=== PATIENT | male | born 1980 | race Caucasian/White ===

== ENCOUNTER 2020-09-10 17:42 | Emergency (ER) | payer BC ==
[~2020-09-10] VITALS: Ht 167.6 cm; Wt 87.5 kg
[2020-09-10] MEDS ORDERED: SERT50TA PO (17:50)
--- NOTE | 2020-09-10 18:30 | NUR ---
PT IS IN ROOM #2B. NATNAAEL GOLDEN EVALUATED THE PT.
[2020-09-10] MEDS ORDERED: DICYCLOMINE HCL 20 MG/2 ML AMPUL IM STA (18:52)
[2020-09-10] MEDS ORDERED: IV NORMAL SALINE 1000 ML BAG IV ONE (19:00)
[2020-09-10] MEDS ORDERED: FAMOTIDINE. 20 MG/2 ML VIAL IV ONE ×2 (19:00→19:05)
[2020-09-10] MEDS ORDERED: ONDANSETRON 4 MG/2 ML VIAL IV ONE (19:00)
[2020-09-10] MEDS ORDERED: ONDANSETRON 4 MG/2 ML VIAL ONE (19:04)
[2020-09-10 19:37] LABS: BASOPHILS % (AUTO) 0.3 % (0.0-2.0); HEMATOCRIT 42.7 % (36.7-47.1); HEMOGLOBIN 14.6 g/dL (12.5-16.3); LYMPHOCYTES % (AUTO) 8.9 % (20.5-51.5); MEAN CORPUSCULAR HEMOGLOBIN 31.1 uug (23.8-33.4); MEAN CORPUSCULAR HGB CONC 34 g/dL (32.5-36.3); MEAN CORPUSCULAR VOLUME 90.8 fL (73.0-96.2); MONOCYTES # (AUTO) 0.2 K/uL (2.0-10.0); NEUTROPHILS # (AUTO) 10.3 K/uL (1.8-8.9); NEUTROPHILS % (AUTO) 88.8 % (38.5-71.5); PLATELET COUNT (AUTO) 280 K/uL (152-348); RED BLOOD CELL COUNT(AUTO) 4.71 MIL/uL (4.06-5.63); WHITE BLOOD COUNT (AUTO) 11.6 K/uL (3.6-10.2)
[2020-09-10 19:50] LABS: BILIRUBIN,DIRECT 0.2 mg/dL (0.0-0.2); BILIRUBIN,TOTAL 0.6 mg/dL (0.2-1.0); POTASSIUM 3.8 mmol/L (3.5-5.1); TOTAL PROTEIN, SERUM 7.9 g/dL (6.4-8.2)
[2020-09-10] MEDS ORDERED: ACETAMINOPHEN ES 500 MG TABLET ONE (20:11)
--- NOTE | 2020-09-10 20:11 | NUR ---
patient given tylenol 1,000mg for temperature of 101.2
[2020-09-10] MEDS ORDERED: METOCLOPRAMIDE HCL 10 MG/2 ML VIAL IV ONE (20:15)
[2020-09-10] MEDS ORDERED: diphenhydrAMINE 50 MG/1 ML VIAL IV ONE (20:15)
[2020-09-10] MEDS ORDERED: ACETAMINOPHEN 325 MG TABLET PO ONE (20:15)
[2020-09-10] MEDS ORDERED: diphenhydrAMINE 50 MG/1 ML VIAL ONE (20:40)
[2020-09-10] MEDS ORDERED: METOCLOPRAMIDE HCL 10 MG/2 ML VIAL ONE (20:40)
--- NOTE | 2020-09-10 20:59 | NUR ---
Patient swabbed for Covid at this time
[2020-09-10] MEDS ORDERED: DICYCLOMINE HCL LIQ 10 MG/5 ML UDC ONE (22:01)
--- NOTE | 2020-09-10 22:17 | NUR ---
IV discontinued at this time
[2020-09-10 22:18] VITALS: BP 127/70
--- NOTE | 2020-09-10 22:30 | NUR ---
Patient discharged to home in stable condition. Able to ambulate with steady gait. Written and verbal after care instructions given. Took all belongings. Patient verbalizes understanding of instructions. Stressed follow up or return to ER for worsening s/s.
== END 2020-09-10 22:30 | disposition home or self-care (01) ==
LOC: ER 17:47
DX: R10.9 Unspecified abdominal pain (principal); R11.2 Nausea with vomiting, unspecified; D72.829 Elevated white blood cell count, unspecified; Z85.47 Personal history of malignant neoplasm of testis; F32.9 Major depressive disorder, single episode, unspecified; Z79.899 Other long term (current) drug therapy; Z20.828 Contact with and (suspected) exposure to other viral communicable diseases
CPT/HCPCS: 36415; 80048; 80076; 83690; 85025; 96361; 96374; 96375; 99284; J0500; J1200; J2405; J2765; J3490; U0003; A4663; A9150; J7030

== ENCOUNTER 2020-09-13 12:33 | Emergency (ER) | payer BC ==
[~2020-09-13] VITALS: Ht 167.6 cm; Wt 86.2 kg
[~2020-09-13 12:33] MED LIST: SERT50TA PO
[2020-09-13] MEDS ORDERED: PANTOPRAZOLE SODIUM 40 MG VIAL IV ONE (14:00)
[2020-09-13] MEDS ORDERED: HYDROMORPHONE 1 MG/1 ML DISP.SYRIN IV ONE (14:00)
[2020-09-13] MEDS ORDERED: IV NORMAL SALINE 1000 ML BAG IV ONE (14:00)
[2020-09-13] MEDS ORDERED: ONDANSETRON 4 MG/2 ML VIAL IV ONE ×2 (14:00→14:45)
[2020-09-13] MEDS ORDERED: HYDROMORPHONE 1 MG/1 ML DISP.SYRIN ONE (14:08)
[2020-09-13] MEDS ORDERED: PANTOPRAZOLE SODIUM 40 MG VIAL ONE (14:08)
[2020-09-13] MEDS ORDERED: ONDANSETRON 4 MG/2 ML VIAL ONE ×2 (14:08→14:51)
[2020-09-13 14:31] LABS: BASOPHILS % (AUTO) 0.5 % (0.0-2.0); HEMOGLOBIN 14.3 g/dL (12.5-16.3); LYMPHOCYTES % (AUTO) 9.9 % (20.5-51.5); MEAN CORPUSCULAR HEMOGLOBIN 31.7 uug (23.8-33.4); MEAN CORPUSCULAR HGB CONC 35 g/dL (32.5-36.3); MONOCYTES # (AUTO) 0.3 K/uL (2.0-10.0); MONOCYTES % (AUTO) 2.7 % (0.0-11.0); NEUTROPHILS % (AUTO) 86.9 % (38.5-71.5); PLATELET COUNT (AUTO) 283 K/uL (152-348); WHITE BLOOD COUNT (AUTO) 10.3 K/uL (3.6-10.2)
[2020-09-13 14:36] LABS: CREATININE 0.9 mg/dL (0.6-1.3); POTASSIUM 3.4 mmol/L (3.5-5.1)
[2020-09-13 14:41] LABS: BILIRUBIN,DIRECT 0.2 mg/dL (0.0-0.2); BILIRUBIN,TOTAL 0.6 mg/dL (0.2-1.0); TOTAL PROTEIN, SERUM 7.7 g/dL (6.4-8.2)
[2020-09-13] MEDS ORDERED: MAGNESIUM CITRATE 296 ML BOTTLE ONE (14:55)
[2020-09-13] MEDS ORDERED: MAGNESIUM HYDROXIDE 30 ML LIQUID UDC ONE (14:55)
[2020-09-13] MEDS ORDERED: MAGNESIUM HYDROXIDE 30 ML LIQUID UDC PO ONE (15:00)
[2020-09-13] MEDS ORDERED: MAGNESIUM CITRATE 296 ML BOTTLE PO ONE (15:00)
--- NOTE | 2020-09-13 17:05 | NUR ---
Patient discharged to home in stable condition. Written and verbal after care instructions given. Patient verbalizes understanding of instructions. Stressed follow up or return to ER for worsening s/s.
== END 2020-09-13 17:05 | disposition home or self-care (01) ==
LOC: ER 12:33
DX: K59.00 Constipation, unspecified (principal); R00.1 Bradycardia, unspecified; F32.9 Major depressive disorder, single episode, unspecified; Z79.899 Other long term (current) drug therapy; Z85.47 Personal history of malignant neoplasm of testis; Z90.79 Acquired absence of other genital organ(s)
CPT/HCPCS: 36415; 71045; 74176; 80048; 80076; 83690; 84484; 85025; 85730; 93005; 96374; 96375; 96376; 99285; C9113; J1170; J2405 ×2; 70030-TC; A4663; J7030

== ENCOUNTER 2020-09-18 12:09 | Emergency (ER) | payer BC ==
[~2020-09-18] VITALS: Ht 167.6 cm; Wt 86.2 kg
[2020-09-18] MEDS ORDERED: METOCLOPRAMIDE HCL 10 MG/2 ML VIAL IV ONE ×2 (12:30)
[2020-09-18] MEDS ORDERED: IV NORMAL SALINE 1000 ML BAG IV ONE ×2 (12:30)
[2020-09-18] MEDS ORDERED: PANTOPRAZOLE SODIUM 40 MG VIAL IV ONE ×2 (12:30)
[2020-09-18] MEDS ORDERED: METOCLOPRAMIDE HCL 10 MG/2 ML VIAL ONE (12:35)
[2020-09-18] MEDS ORDERED: PANTOPRAZOLE SODIUM 40 MG VIAL ONE (12:55)
[2020-09-18 13:13] LABS: *BILIRUBIN,URIN 1+ (NEGATIVE); *BLOOD, URINE 1+ (NEGATIVE); *CLARITY,URINE CLEAR (CLEAR); *COLOR,URINE YELLOW (YELLOW); *KETONES,URINE NEGATIVE (NEGATIVE); *UROBILINOGEN,URINE 0.2 E.U./dl (NORMAL); LEUKOCYTE ESTERASE ,URINE NEGATIVE (NEGATIVE); NITRITE, URINE NEGATIVE (NEGATIVE); UGLUCOSE NEGATIVE (NEGATIVE)
[2020-09-18] MEDS ORDERED: MORPHINE SULFATE 4 MG/1 ML DISP.SYRIN IV ONE (13:15)
[2020-09-18] MEDS: METOCLOPRAMIDE HCL 10 MG/2 ML VIAL IM ONE ×2 (13:22→13:23)
[2020-09-18] MEDS ORDERED: MORPHINE SULFATE 4 MG/1 ML DISP.SYRIN ONE (13:25)
[2020-09-18 13:44] LABS: BASOPHILS % (AUTO) 0.2 % (0.0-2.0); HEMOGLOBIN 14.5 g/dL (12.5-16.3); LYMPHOCYTES % (AUTO) 8.4 % (20.5-51.5); MEAN CORPUSCULAR HEMOGLOBIN 31.3 uug (23.8-33.4); MEAN CORPUSCULAR HGB CONC 34 g/dL (32.5-36.3); MEAN CORPUSCULAR VOLUME 92.6 fL (73.0-96.2); MONOCYTES # (AUTO) 0.3 K/uL (2.0-10.0); MONOCYTES % (AUTO) 2.6 % (0.0-11.0); NEUTROPHILS # (AUTO) 10.8 K/uL (1.8-8.9); NEUTROPHILS % (AUTO) 88.8 % (38.5-71.5); PLATELET COUNT (AUTO) 290 K/uL (152-348); RED BLOOD CELL COUNT(AUTO) 4.64 MIL/uL (4.06-5.63); WHITE BLOOD COUNT (AUTO) 12.2 K/uL (3.6-10.2)
[2020-09-18 13:47] LABS: CREATININE 0.9 mg/dL (0.6-1.3); POTASSIUM 3.6 mmol/L (3.5-5.1)
[2020-09-18 13:53] LABS: BILIRUBIN,TOTAL 0.4 mg/dL (0.2-1.0); TOTAL PROTEIN, SERUM 7.9 g/dL (6.4-8.2)
[2020-09-18 14:59] LABS: BACTERIA,URINE NONE SEEN /HPF (NONE SEEN); SQUAMOUS EPITHELIAL CELL,UR NONE SEEN /HPF (NONE SEEN); WBC,URINE 0-3 /HPF (0-3)
[2020-09-18 16:23] VITALS: BP 134/78
--- NOTE | 2020-09-18 16:30 | NUR ---
Patient discharged to home in stable condition. Written and verbal after care instructions given. Patient verbalizes understanding of instructions. Stressed follow up or return to ER for worsening s/s.pt walks in steady gait. pt not driving
== END 2020-09-18 16:30 | disposition home or self-care (01) ==
LOC: ER 12:11
DX: R11.2 Nausea with vomiting, unspecified (principal); R10.13 Epigastric pain; D72.829 Elevated white blood cell count, unspecified; Z85.47 Personal history of malignant neoplasm of testis; Z90.79 Acquired absence of other genital organ(s)
CPT/HCPCS: 36415; 76700; 80053; 81001; 83690; 85025; 96361; 96374; 96375; 99284; C9113; J2270; J2765; A4663; J7030

== ENCOUNTER 2021-03-22 00:07 | Inpatient (IN) | payer BC ==
[~2021-03-22] VITALS: Ht 172.7 cm; Wt 86.2 kg
[2021-03-22] MEDS ORDERED: OXYC30TA2 PO (00:31)
[2021-03-22] MEDS ORDERED: SERT100T PO (00:33)
[2021-03-22] MEDS ORDERED: ONDA4TAB5 PO (00:35)
[2021-03-22] MEDS ORDERED: PANT40TA49 PO (00:36)
[2021-03-22] MEDS ORDERED: LORA-258 PO (00:38)
[2021-03-22] MEDS ORDERED: IV NORMAL SALINE 1000 ML BAG IV ONE (01:00)
[2021-03-22] MEDS ORDERED: ONDANSETRON 4 MG/2 ML VIAL ONE (01:00)
[2021-03-22] MEDS ORDERED: FAMOTIDINE. 20 MG/2 ML VIAL IV ONE ×2 (01:00)
[2021-03-22] MEDS ORDERED: ONDANSETRON 4 MG/2 ML VIAL IV ONE (01:00)
--- NOTE | 2021-03-22 01:05 | NUR ---
Pt. chief complaint is nausea and vomiting with burning abdominal pain starting 8pm today. Pt has vomited >12 times since yesterday. Pt. hasn't eaten since episodes started, vomit has been bilious and liquid. Abdominal pain radiates from lower to upper abdomen 7/10 pain level. Pt states this has happened before, last instance of excessive nausea and vomiting was august. Pt. was put on pantoprazole by [facility] at the end of december. Pt states he ran out of pantoprazole 2 day ago. Pt also states he underwent endoscopy and colonoscopy which he states showed irritation but does not know of an official diagnosis by his GI doctor. Pt. is afebrile and denies cough, diarrhea, congestion, or other symptoms. Pt has had 5 vomiting episodes witnessed by myself since arrival to ED. Vss. Pt in bed, will continue to follow up.
[2021-03-22 01:11] LABS: HEMATOCRIT 42.8 % (36.7-47.1); MEAN CORPUSCULAR HEMOGLOBIN 29.8 uug (23.8-33.4); MEAN CORPUSCULAR VOLUME 88.5 fL (73.0-96.2); PLATELET COUNT (AUTO) 349 K/uL (152-348)
[2021-03-22 01:16] LABS: CREATININE 0.9 mg/dL (0.6-1.3); POTASSIUM 4.2 mmol/L (3.5-5.1)
[2021-03-22 01:28] LABS: BILIRUBIN,DIRECT 0.1 mg/dL (0.0-0.2); BILIRUBIN,TOTAL 0.3 mg/dL (0.2-1.0); TOTAL PROTEIN, SERUM 8.3 g/dL (6.4-8.2)
[2021-03-22] MEDS ORDERED: METOCLOPRAMIDE HCL 10 MG/2 ML VIAL IV ONE (01:45)
[2021-03-22] MEDS ORDERED: METOCLOPRAMIDE HCL 10 MG/2 ML VIAL ONE (01:50)
[2021-03-22] MEDS ORDERED: SUCRALFATE 1 G/10 ML LIQUID UDC GT STA (02:07)
[2021-03-22] MEDS ORDERED: HALOPERIDOL LACTATE IV ONE (02:15)
[2021-03-22] MEDS ORDERED: LIDOCAINE VISCUS 2% 15 ML UDC MM ONE (02:15)
[2021-03-22] MEDS ORDERED: DEXTROSE 5% IV ONE (02:15)
[2021-03-22] MEDS ORDERED: MAG HYDROX/AL HYDROX/SIMETH 30 ML LIQUID UDC PO ONE (02:15)
[2021-03-22] MEDS ORDERED: LIDOCAINE VISCUS 2% 15 ML UDC ONE (02:23)
[2021-03-22] MEDS ORDERED: HALOPERIDOL LACTATE 5 MG/1 ML VIAL ONE (02:23)
[2021-03-22] MEDS ORDERED: MAG HYDROX/AL HYDROX/SIMETH 30 ML LIQUID UDC ONE (02:23)
[2021-03-22] MEDS ORDERED: SUCRALFATE 1 G/10 ML LIQUID UDC ONE (02:24)
[2021-03-22] MEDS ORDERED: IV NS 1000 ML 1,000 ML IV ONE ×2 (02:30)
--- NOTE | 2021-03-22 02:33 | NUR ---
Pt. resting in bed, still vomiting profusely after anti nausea medications. Insurance is being checked to see if pt. can be admitted inpatient. Vss. Will continue to monitor.
--- NOTE | 2021-03-22 03:03 | NUR ---
Pt to be admitted to [facility]. Called EPIC panel to reach Kierra Hilario NP to consult with Dr. Crisostomo.
--- NOTE | 2021-03-22 03:09 | NUR ---
Dr. Crisostomo cosulting on phone with Kierra Hilario NP regarding pt. admission.
[2021-03-22] MEDS ORDERED: LORAZEPAM 0.5 MG TABLET PO PRN ×2 (03:15→03:30)
[2021-03-22] MEDS ORDERED: MAGNESIUM HYDROXIDE 30 ML LIQUID UDC PO PRN ×2 (03:15→03:30)
[2021-03-22] MEDS ORDERED: IV NS 1000 ML 1,000 ML IV PRN (03:15)
[2021-03-22] MEDS ORDERED: Z GUARD REMEDY PASTE 57 GM TUBE TOP PRN ×2 (03:15→03:30)
[2021-03-22] MEDS ORDERED: ONDANSETRON 4 MG/2 ML VIAL IV PRN ×2 (03:15→03:30)
--- NOTE | 2021-03-22 04:06 | NUR ---
Report given to DOTTIE Ni for pt. admission to medical surgical floor.
[2021-03-22 04:35] VITALS: BP 151/81
[2021-03-22] MEDS: IV NS 1000 ML 1,000 ML IV PRN ×2 (04:56→18:36)
[2021-03-22 05:19] LABS: *BILIRUBIN,URIN NEGATIVE (NEGATIVE); *CLARITY,URINE CLEAR (CLEAR); *COLOR,URINE YELLOW (YELLOW); *KETONES,URINE 1+ (NEGATIVE); LEUKOCYTE ESTERASE ,URINE NEGATIVE (NEGATIVE); NITRITE, URINE NEGATIVE (NEGATIVE); PH,URINE 6.5 (5.0-8.0); UGLUCOSE NEGATIVE (NEGATIVE)
[2021-03-22 05:29] LABS: *BLOOD, URINE TRACE (NEGATIVE); BACTERIA,URINE NONE SEEN /HPF (NONE SEEN); SQUAMOUS EPITHELIAL CELL,UR FEW /HPF (NONE SEEN); WBC,URINE 0-3 /HPF (0-3)
[2021-03-22] MEDS ORDERED: METOCLOPRAMIDE HCL 10 MG/2 ML VIAL IV SCH (06:00)
[2021-03-22] MEDS: METOCLOPRAMIDE HCL 10 MG/2 ML VIAL IV SCH ×4 (06:01→23:54)
[2021-03-22] MEDS: PANTOPRAZOLE SODIUM 40 MG VIAL IV SCH (08:24)
[2021-03-22] MEDS: SERTRALINE HCL 100 MG TABLET PO SCH (08:25)
[2021-03-22] MEDS ORDERED: PANTOPRAZOLE SODIUM 40 MG VIAL IV SCH (09:00)
[2021-03-22] MEDS ORDERED: SERTRALINE HCL 100 MG TABLET PO SCH (09:00)
[2021-03-22] MEDS ORDERED: Medication Not On Formulary EA (Oxycodone Hcl 30 MG) PO SCH (09:00)
[2021-03-22] MEDS ORDERED: OXYC10TA49 PO (10:01)
[2021-03-22] MEDS ORDERED: OXYCODONE HCL 5 MG TABLET PO PRN (10:15)
[2021-03-22 10:52] LABS: HEMATOCRIT 38.6 % (36.7-47.1); MEAN CORPUSCULAR HEMOGLOBIN 30.1 uug (23.8-33.4); MEAN CORPUSCULAR VOLUME 89.1 fL (73.0-96.2); PLATELET COUNT (AUTO) 320 K/uL (152-348)
[2021-03-22 10:59] LABS: POTASSIUM 4.3 mmol/L (3.5-5.1)
[2021-03-22 11:04] LABS: BILIRUBIN,DIRECT 0.1 mg/dL (0.0-0.2); BILIRUBIN,TOTAL 0.4 mg/dL (0.2-1.0); MAGNESIUM 1.8 mg/dL (1.8-2.4); PHOSPHOROUS 2.3 mg/dL (2.5-4.9); TOTAL PROTEIN, SERUM 7.5 g/dL (6.4-8.2)
[2021-03-22 11:33] VITALS: BP 139/71
[2021-03-22] MEDS ORDERED: NEUTRA PHOS PACKET PO ONE (16:15)
--- NOTE | 2021-03-22 17:30 | NUR ---
Tolerated clear liquid lunch well enough to advance to regular diet - will endorse to PM shift to monitor tolerance and message Liz Solis NP with update
--- NOTE | 2021-03-22 19:58 | NUR ---
LANDY Frias paged and informed that the patient did not eat dinner and that to infior her if the patient tolerate the diet or not .with orders to change the diet to clear liquids/
[2021-03-22 20:10] VITALS: BP 116/76
[2021-03-23 04:51] VITALS: BP 114/67
[2021-03-23] MEDS: METOCLOPRAMIDE HCL 10 MG/2 ML VIAL IV SCH (05:31)
[2021-03-23 06:43] LABS: HEMATOCRIT 34.3 % (36.7-47.1); MEAN CORPUSCULAR HEMOGLOBIN 30.8 uug (23.8-33.4); MEAN CORPUSCULAR VOLUME 88.8 fL (73.0-96.2); PLATELET COUNT (AUTO) 276 K/uL (152-348)
[2021-03-23 07:00] LABS: CREATININE 0.8 mg/dL (0.6-1.3); MAGNESIUM 2.1 mg/dL (1.8-2.4); PHOSPHOROUS 3.3 mg/dL (2.5-4.9); POTASSIUM 3.6 mmol/L (3.5-5.1)
[2021-03-23] MEDS: IV NS 1000 ML 1,000 ML IV PRN (07:02)
--- NOTE | 2021-03-23 07:05 | NUR ---
tolerated the jel o given and drinks fluids with nno vomiting . ivf consumed and followed up.
--- NOTE | 2021-03-23 08:00 | NUR ---
received change of shift report, pt in bed resting, no reports of pain at this time, bed low and locked, call light within reach, IV on the right hand 22g, infusing NS at 75. pt on room air, no signs of distress, will continue with plan of care.
[2021-03-23] MEDS: PANTOPRAZOLE SODIUM 40 MG VIAL IV SCH (08:55)
[2021-03-23] MEDS: SERTRALINE HCL 100 MG TABLET PO SCH (08:55)
[2021-03-23 11:48] VITALS: BP 119/79
[2021-03-23] MEDS ORDERED: METOCLOPRAMIDE HCL 10 MG TABLET PO SCH (12:00)
[2021-03-23 15:26] VITALS: BP 107/58
--- NOTE | 2021-03-23 16:30 | NUR ---
PT DISCHARGED HOME WITH ALL BELONGINGS, AND MEDICATIONS. PT EDUCATED ON FOLLOW UP APPOINTMENTS, MEDICATIONS AND DIAGNOSIS. PT VITALS WNL, PT IV AND ID BAND REMOVED, PT AMBULATORY, ON ROOM AIR, NO SIGNS OF DISTRESS, NO REPORTS OF PAIN, ALL MEDICATIONS GIVEN ORDERED, ALL NEEDS MET THIS SHIFT. PT LEFT VIA PRIVATE CAR.
[2021-03-24] MEDS ORDERED: PANTOPRAZOLE SODIUM 40 MG TABLET.DR PO SCH (07:00)
[2021-03-24 07:06] LABS: *TESTOSTERONE, SERUM 147 ng/dL (264-916)
== END 2021-03-23 16:30 | disposition home or self-care (01) | DRG 392 ==
LOC: ER 00:13 → MEDSURG3 04:12
PROVIDERS: ADMIT Registered Nurse; ATTEND Registered Nurse
DX: R11.2 Nausea with vomiting, unspecified (principal); K29.70 Gastritis, unspecified, without bleeding; E86.0 Dehydration; D72.829 Elevated white blood cell count, unspecified; F32.9 Major depressive disorder, single episode, unspecified; G89.4 Chronic pain syndrome; T40.606A Underdosing of unspecified narcotics, initial encounter; F41.9 Anxiety disorder, unspecified; Z20.822 Contact with and (suspected) exposure to COVID-19; Z85.47 Personal history of malignant neoplasm of testis; Y92.009 Unspecified place in unspecified non-institutional (private) residence as the place of occurrence of the external cause; Z90.79 Acquired absence of other genital organ(s); Z79.891 Long term (current) use of opiate analgesic; Z91.19 Patient's noncompliance with other medical treatment and regimen
CPT/HCPCS: 36415; 76700; 83690; 83735; 84100; 84403; 85025; 93005; A4663; C9113; G0378; J1630; J2405; J2765; J3490; J7030; J7060; J8597

== ENCOUNTER 2023-04-17 10:24 | Emergency (ER) | payer BC ==
--- NOTE | 2023-04-17 10:28 | NUR ---
Called for triage, no answer
--- NOTE | 2023-04-17 10:34 | NUR ---
Called for triage, no answer
--- NOTE | 2023-04-17 10:42 | NUR ---
Called for triage, no answer
== END 2023-04-17 10:48 | disposition left against medical advice (07) ==
LOC: ER 10:24
DX: Z53.21 Procedure and treatment not carried out due to patient leaving prior to being seen by health care provider (principal)

== ENCOUNTER → 2023-04-17 | Emergency (ER) | payer BC ==
[~2023-04-17] VITALS: Ht 167.6 cm; Wt 89.4 kg
[~2023-04-17] MED LIST changes: +LORA-258 PO; +ONDA4TAB5 PO; +OXYC10TA49 PO; +PANT40TA49 PO; +SERT100T PO; -SERT50TA PO
[2023-04-17 12:07] VITALS: O2SAT 98
--- NOTE | 2023-04-17 13:30 | NUR ---
Pt left without being seen by MD. Pt aware of injuries without being treated.
== END | disposition left against medical advice (07) ==
LOC: ER 12:08
DX: R11.2 Nausea with vomiting, unspecified (principal); Z79.899 Other long term (current) drug therapy
CPT/HCPCS: A4663

== ENCOUNTER 2025-03-25 17:45 | Emergency (ER) | payer SELFPAY ==
[~2025-03-25] VITALS: Ht 167.6 cm; Wt 65.8 kg
[2025-03-25 18:19] LABS: PLATELET COUNT (AUTO) 287 K/uL (152-348); RED BLOOD CELL COUNT(AUTO) 4.40 MIL/uL (4.06-5.63); RED CELL DISTRIBUTION WIDTH 13.2 % (12.1-16.2); WHITE BLOOD COUNT (AUTO) 7.0 K/uL (3.6-10.2)
[2025-03-25 18:27] LABS: CREATININE 0.8 mg/dL (0.6-1.3); SODIUM SERUM 144 mmol/L (136-145); UREA NITROGEN, BLOOD 15 mg/dL (7-18)
[2025-03-25 18:33] LABS: ASPARTATE AMINOTRANSFERASE 11 U/L (15-37); TOTAL PROTEIN, SERUM 7.0 g/dL (6.4-8.2)
[2025-03-25 19:46] VITALS: BP 153/102; TEMP 97.8; O2SAT 99
== END 2025-03-25 19:46 | disposition home or self-care (01) ==
LOC: ER 17:53
DX: M25.512 Pain in left shoulder (principal); R20.2 Paresthesia of skin; R20.0 Anesthesia of skin; R11.0 Nausea; R03.0 Elevated blood-pressure reading, without diagnosis of hypertension; F17.200 Nicotine dependence, unspecified, uncomplicated; F32.A Depression, unspecified; F41.9 Anxiety disorder, unspecified; F19.10 Other psychoactive substance abuse, uncomplicated; Z79.899 Other long term (current) drug therapy; Z85.47 Personal history of malignant neoplasm of testis; Z87.19 Personal history of other diseases of the digestive system; Z90.79 Acquired absence of other genital organ(s); Z87.2 Personal history of diseases of the skin and subcutaneous tissue
CPT/HCPCS: 36415; 84484; 85025; A4606; A4663

== ENCOUNTER 2025-03-27 07:18 | Emergency (ER) | payer SELFPAY ==
[~2025-03-27] VITALS: Ht 170.2 cm; Wt 65.8 kg
[2025-03-27] MEDS ORDERED: AMLO-212 PO (08:01)
[2025-03-27] MEDS ORDERED: LORA0.5T48 PO (08:02)
[2025-03-27 08:14] VITALS: BP 143/98; TEMP 98.6; O2SAT 100
== END 2025-03-27 08:15 | disposition home or self-care (01) ==
LOC: ER 07:18
DX: R03.0 Elevated blood-pressure reading, without diagnosis of hypertension (principal); F32.A Depression, unspecified; F41.9 Anxiety disorder, unspecified; F19.10 Other psychoactive substance abuse, uncomplicated; Z79.899 Other long term (current) drug therapy; Z85.47 Personal history of malignant neoplasm of testis; Z87.19 Personal history of other diseases of the digestive system; Z90.79 Acquired absence of other genital organ(s); Z87.2 Personal history of diseases of the skin and subcutaneous tissue
CPT/HCPCS: A4606; A4663